=== PATIENT | female | born 1955 | race Caucasian/White ===

== ENCOUNTER 2020-07-14 12:04 | Emergency (ER) | payer MEDICARE, SELFPAY ==
--- NOTE | ~2020-07-14 | XR_ITS ---
EXAMINATION: XR RIBS, RIGHT CLINICAL INFORMATION: Fall right-sided rib pain COMPARISON: None TECHNIQUE: Frontal view chest and 3 views right ribs are obtained for a total of 4 views. FINDINGS: There is no pneumothorax, pleural reaction, infiltrate, or effusion. Calcified artery noted subpleural left lower zone measuring approximately 7 x 10 mm. The heart is normal in size. The vascularity is normal. The hilar and mediastinal contours are normal. One of the rib films shows subtle irregularity cortex distal sixth rib which may be related to fracture. Recommend correlation with patient's symptoms and clinical exam. The remainder of the ribs appear intact. There is no bony destructive process. There are multilevel degenerative changes thoracic spine and bilateral shoulders. There is calcific tendinosis left shoulder. XR/XR ribs RT min 3V w CXR1V IMPRESSION: 1. Question fracture distal right sixth rib. Recommend correlation with patient's symptoms and clinical exam. 2. No pneumothorax, airspace consolidation, or effusion. 3. Subpleural calcified granuloma periphery left lower zone 7 x 10 mm.
[2020-07-14 12:19] VITALS: BP 180/77; PULSE 100; RESP 20; TEMP 36.6; O2SAT 97; BMI 39.6
--- NOTE | 2020-07-14 13:23 | ED.FALL ---
HPI - Fall General Chief Complaint: Fall Stated Complaint: fall - diff breathing Time Seen by Provider: 07/14/20 13:22 Source: patient Mode of arrival: ambulatory Limitations: no limitations History of Present Illness HPI Narrative: 64-year-old female presented for evaluation of right chest wall pain after fell yesterday. 64-year-old female who sustained a mechanical fall yesterday patient fell after losing balance, patient fell landed on her right side mostly landed on a right chest wall, patient sustained and hematoma to the right chest wall, and the right arm. Patient initially had no pain but pain started to become gradually this morning patient had severe right-sided chest pain that is worsening with breathing or movement. Pain is constant, severe described as 10/10, has a hematoma on the right breast. No head injury, no LOC, no neck pain. Related Data Home Medications Medication Instructions Recorded Confirmed amoxicillin 875 mg tablet 875 mg PO BID 07/14/20 07/14/20 atorvastatin 40 mg tablet 40 mg PO DAILY 07/14/20 07/14/20 blood sugar diagnostic #10 ea 07/14/20 07/14/20 blood-glucose meter #1 ea 07/14/20 07/14/20 bupropion HCl 150 mg 24 hr tablet, 150 mg PO BID 07/14/20 07/14/20 extended release bupropion HCl 150 mg tablet,12 hr 150 mg PO BID 07/14/20 07/14/20 sustained-release bupropion HCl 300 mg 24 hr tablet, 300 mg PO DAILY 07/14/20 07/14/20 extended release duloxetine 60 mg capsule,delayed 120 mg PO DAILY 07/14/20 07/14/20 release furosemide 40 mg tablet 40 mg PO DAILY 07/14/20 07/14/20 glipizide 5 mg tablet, extended 5 mg PO DAILY 07/14/20 07/14/20 release 24 hr lamotrigine 100 mg tablet 100 mg PO BID 07/14/20 07/14/20 lancets #100 ea 07/14/20 07/14/20 liraglutide 0.6 mg/0.1 mL (18 mg/3 1.8 mg SUBCUT DAILY 07/14/20 07/14/20 mL) subcutaneous pen injector lisinopril 10 mg tablet 10 mg PO DAILY 07/14/20 07/14/20 metformin 1,000 mg tablet 1,000 mg PO BID 07/14/20 07/14/20 oxycodone 20 mg tablet,crush 20 mg PO BID 07/14/20 07/14/20 resistant,extended release 12 hr oxycodone 5 mg tablet 5 mg PO 07/14/20 07/14/20 oxycodone myristate 18 mg capsule 18 mg PO Q12H 07/14/20 07/14/20 sprinkle extended release 12hr(DON'T CRUSH) pen needle, diabetic 31 gauge x #1200 ea 07/14/20 07/14/20 5/16 potassium chloride 20 mEq 20 meq PO DAILY 07/14/20 07/14/20 tablet,extended release(part/cryst) Allergies Allergy/AdvReac Type Severity Reaction Status Date / Time heparin Allergy Unknown Verified 07/14/20 11:46 Opioids - Morphine Analogues Allergy Unknown Verified 07/14/20 11:46 Review of Systems Review of Systems: All other systems are reviewed and are negative Constitutional: Reports as per HPI and Reports no additional constitutional complaints Eyes: Reports as per HPI and Reports no additional eye complaints Reports system reviewed and no additional complaints, except as documented Cardiovascular: Reports as per HPI and Reports no additional cardiovascular complaints Respiratory: Reports as per HPI and Reports no additional respiratory complaints Gastrointestinal: Reports as per HPI and Reports no additional gastrointestinal complaints Genitourinary: Reports no additional female genitourinary complaints Musculoskeletal: Reports no additional musculoskeletal complaints Skin/Breast: Reports system reviewed and no additional complaints, except as docu Psychiatric: Reports no additional psychiatric complaints Endocrine: Reports no additional endocrine complaints Hematologic/Lymphatic: Reports no additional hematologic/lymphatic complaints Allergic/Immunologic: Reports no additional allergic/immunologic complaints Reports system reviewed and no additional complaints, except as documented and Reports Abnormal speech present FORMERLY [facility] Social History Social History Advance Directives: No Advance Directives Information Provided: Yes Physical Exam Vital Signs: Vital Signs: Last Vital Signs Temp 98 F 07/14/20 12:19 Pulse 100 07/14/20 12:19 Resp 20 07/14/20 12:19 BP 180/77 H 07/14/20 12:19 Pulse Ox 97 07/14/20 12:19 Body Mass Index 39.6 Vital signs have been reviewed as appeared to be correct. Blood pressure elevated likely due to pain. Heart rate normal. Respiration rate normal. Temperature normal. Oxygen saturation normal. Appearance: Alert. Oriented X3. No acute distress. Head: Normal external exam. Normocephalic. Atraumatic. No Rivera signs noted. No raccoon eyes noted Eyes: PERRLA. EOMI. Conjunctiva and sclera normal. Eyelids normal. ENT: TM's Normal. Pharynx normal. Uvula midline. Moist mucous membranes. No trismus noted. No drooling noted. No muffled voice noted. Neck: Normal inspection. Neck supple. FROM. No adenopathy. Thyroid Normal. No meningeal signs. No neck mass noted. CVS: Normal heart rate and rhythm. Heart sound normal. No murmurs noted. Pulses normal throughout. Respiratory: No respiratory distress. Painless inspiration. Breath sounds normal. No wheezes/rales/rhonchi noted. (+) ecchymosis 5 x 5 cm on the right breast, tenderness some palpation on wall mostly around 6/7 ribs on the right side no subcu emphysema, no crepitus, no deformity, no step-off.. No accessory muscle usage noted or decreased air movement noted. Abdomen: Soft and nontender. Bowel sounds normal in all 4 quadrants. No distention noted. No organomegaly noted. No visible injury noted. Back: No CVA tenderness. Full range of motion noted. Skin: Skin warm and dry. Normal skin color. Normal skin turgor. No rashes/lesions/lacerations noted. Extremities: No lower extremity edema. Extremities exhibit normal range of motion. Extremities nontender. Neuro: Oriented X 3. No motor deficit. No sensory deficit. Reflexes normal. GCS of 15. Course Course Course Narrative: Assessment and plan. 64-year-old female who sustained a mechanical fall yesterday complaining of right-sided chest wall with breathing and movement. Physical exam and x-ray are consistent with right 6 rib fracture nondisplaced, no no evidence suggesting a pneumothorax or other injuries. Patient was GCS of 15 no headache, no neck pain. Patient use oxycodone for chronic pain patient was instructed about the importance of taking a deep breath to keep the lung well inflated and prevent do complication of lung collapse or atelectasis. Because of the vague history of narcotic allergy patient was given Dilaudid (patient stated that she had it before) but patient was monitored in the ER for 15 minutes watching for reaction to Dilaudid. MDM - Fall Imaging Data X-ray ribs/chest x-ray: Radiologist's impression: There is no pneumothorax, pleural reaction, infiltrate, or effusion. Calcified artery noted subpleural left lower zone measuring approximately 7 x 10 mm. The heart is normal in size. The vascularity is normal. The hilar and mediastinal contours are normal. One of the rib films shows subtle irregularity cortex distal sixth rib which may be related to fracture. Recommend correlation with patient's symptoms and clinical exam. The remainder of the ribs appear intact. There is no bony destructive process. There are multilevel degenerative changes thoracic spine and bilateral shoulders. There is calcific tendinosis left shoulder. XR/XR ribs RT min 3V w CXR1V IMPRESSION: 1. Question fracture distal right sixth rib. Recommend correlation with patient's symptoms and clinical exam. 2. No pneumothorax, airspace consolidation, or effusion. 3. Subpleural calcified granuloma periphery left lower zone 7 x 10 mm. Discharge Plan Discharge Clinical Impression: Closed rib fracture Qualifiers: Encounter type: initial encounter Rib fracture type: single rib Laterality: right Qualified Code(s): S22.31XA - Fracture of one rib, right side, initial encounter for closed fracture Patient Disposition: Home, Self-Care Instructions: Rib Fracture (ED) Prescriptions: No Action bupropion HCl 300 mg tablet extended release 24 hr 300 mg PO DAILY RF: 0 Victoza 3-Mauro 0.6 mg/0.1 mL (18 mg/3 mL) pen injector 1.8 mg subcut DAILY RF: 0 duloxetine 60 mg capsule,delayed release(DR/EC) 120 mg PO DAILY RF: 0 lamotrigine 100 mg tablet 100 mg PO BID RF: 0 lisinopril 10 mg tablet 10 mg PO DAILY RF: 0 oxycodone 5 mg tablet 5 mg PO RF: 0 Xtampza ER 18 mg cap,sprinkl,ER12hr(DONT CRUSH) 18 mg PO Q12H RF: 0 (DME) pen needle, diabetic 31 gauge x 5/16 needle See Rx Instructions ea subcut DAILY Qty: 1200 RF: 0 (DME) lancets Misc See Rx Instructions ea topical .MEDSUPPLY Qty: 100 RF: 0 (DME) Accu-Chek Guide test strips Strip See Rx Instructions ea .ROUTE TID Qty: 10 RF: 0 glipizide 5 mg tablet extended release 24hr 5 mg PO DAILY RF: 0 (DME) blood-glucose meter Misc See Rx Instructions kit .ROUTE .MEDSUPPLY Qty: 1 RF: 0 metformin 1,000 mg tablet 1,000 mg PO BID RF: 0 potassium chloride 20 mEq tablet,ER particles/crystals 20 meq PO DAILY RF: 0 furosemide 40 mg tablet 40 mg PO DAILY RF: 0 amoxicillin 875 mg tablet 875 mg PO BID RF: 0 atorvastatin 40 mg tablet 40 mg PO DAILY RF: 0 bupropion HCl 150 mg tablet sustained-release 12 hr 150 mg PO BID RF: 0 bupropion HCl 150 mg tablet extended release 24 hr 150 mg PO BID RF: 0 oxycodone 20 mg tablet,oral only,ext.rel.12 hr 20 mg PO BID RF: 0 Referrals: Physician,Nonstaff [Primary Care Provider] - 2 days
[2020-07-14] MEDS: HYDROmorphone HCl 1 MG/ML SYRINGE IM (13:28)
[2020-07-14] MEDS: Ketorolac Tromethamine 60 MG/2 ML VIAL IM (13:28)
== END 2020-07-14 14:04 | disposition home or self-care (01) ==
PROVIDERS: Emergency Provider Emergency Medicine
DX: S22.31XA Fracture of one rib, right side, initial encounter for closed fracture (principal); W01.0XXA Fall on same level from slipping, tripping and stumbling without subsequent striking against object, initial encounter; Y93.9 Activity, unspecified; Y92.019 Unspecified place in single-family (private) house as the place of occurrence of the external cause; Y99.9 Unspecified external cause status; G89.29 Other chronic pain; Z79.891 Long term (current) use of opiate analgesic
CPT/HCPCS: 71101; 96372; 99284; J1170; J1885

== ENCOUNTER 2022-09-27 16:10 | Emergency (ER) | payer MEDICARE, SELFPAY ==
[2022-09-27 16:29] VITALS: BP 135/56; PULSE 92; RESP 18; TEMP 36; O2SAT 97; BMI 44.0
--- NOTE | 2022-09-27 16:30 | ED.GENADULT ---
HPI - General Adult General Chief complaint: Extremity Injury, Lower Stated complaint: Fall/right leg pain Time Seen by Provider: 09/27/22 19:37 Source: patient Mode of arrival: ambulatory Limitations: no limitations History of Present Illness HPI narrative: Patient is a 66-year-old female who presents emergency department for evaluation of right lower leg pain swelling and redness. She reports a mechanical trip and fall 1 week ago landing on the cement were she sustained bruising diffusely from below the knee down to the foot. She has been ambulatory with a steady gait since then. She denied any head strike or loss of consciousness with this initial fall. Denies any use of anticoagulants, although she does report a remote history of DVT during . She states that today she noticed she developed redness, warmth, increased swelling to the right lower extremity. She denies fevers, chills, chest pain, shortness of breath, difficulty breathing, numbness or tingling to the leg, cold sensation to the foot. Related Data Home Medications Medication Instructions Recorded Confirmed amoxicillin 875 mg tablet 875 mg PO BID 07/14/20 07/14/20 atorvastatin 40 mg tablet 40 mg PO DAILY 07/14/20 07/14/20 blood sugar diagnostic #10 ea 07/14/20 07/14/20 blood-glucose meter #1 ea 07/14/20 07/14/20 bupropion HCl 150 mg 24 hr tablet, 150 mg PO BID 07/14/20 07/14/20 extended release bupropion HCl 150 mg tablet,12 hr 150 mg PO BID 07/14/20 07/14/20 sustained-release bupropion HCl 300 mg 24 hr tablet, 300 mg PO DAILY 07/14/20 07/14/20 extended release duloxetine 60 mg capsule,delayed 120 mg PO DAILY 07/14/20 07/14/20 release furosemide 40 mg tablet 40 mg PO DAILY 07/14/20 07/14/20 glipizide 5 mg tablet, extended 5 mg PO DAILY 07/14/20 07/14/20 release 24 hr lamotrigine 100 mg tablet 100 mg PO BID 07/14/20 07/14/20 lancets #100 ea 07/14/20 07/14/20 liraglutide 0.6 mg/0.1 mL (18 mg/3 1.8 mg subcut DAILY 07/14/20 07/14/20 mL) subcutaneous pen injector lisinopril 10 mg tablet 10 mg PO DAILY 07/14/20 07/14/20 metformin 1,000 mg tablet 1,000 mg PO BID 07/14/20 07/14/20 oxycodone 20 mg tablet,crush 20 mg PO BID 07/14/20 07/14/20 resistant,extended release 12 hr oxycodone 5 mg tablet 5 mg PO 07/14/20 07/14/20 oxycodone myristate 18 mg capsule 18 mg PO Q12H 07/14/20 07/14/20 sprinkle extended release 12hr(DON'T CRUSH) pen needle, diabetic 31 gauge x #1,200 ea 07/14/20 07/14/2008/07 potassium chloride 20 mEq 20 meq PO DAILY 07/14/20 07/14/20 tablet,extended release(part/cryst) Previous Rx's Medication Instructions Recorded cephalexin 500 mg capsule 500 mg PO QID 7 days #28 caps 09/27/22 doxycycline hyclate 100 mg capsule 100 mg PO BID #14 caps 09/27/22 Allergies Allergy/AdvReac Type Severity Reaction Status Date / Time heparin Allergy Unknown Verified 09/27/22 16:28 Opioids - Morphine Analogues Allergy Unknown Verified 09/27/22 16:28 Review of Systems Review of Systems: Constitutional: No weight loss, fever, chills, weakness or fatigue. Skin: As per HPI Cardiovascular: No chest pain, chest pressure or chest discomfort. No palpitations or pedal edema. Respiratory: No shortness of breath, cough or sputum production. Gastrointestinal: No anorexia, nausea, vomiting or diarrhea. No abdominal pain or blood in stool. Genitourinary: No burning micturition. No urinary frequency or incontinence. Musculoskeletal: As per HPI Psychiatric: No depression or anxiety. Yes all other systems are reviewed and are negative PMFSH Past Medical History Attestation statement: The following information was validated with the patient. Source: old records reviewed Social History Social History Smoked in Last 30 Days: Yes Use of substances other than those prescribed or required for medical reasons: No Advance Directives: No Advance Directives Information Provided: No Physical Exam ED Vital Signs: Vital Signs - 24 hr 09/27/22 16:29 09/27/22 19:52 Temperature 96.8 F Pulse Rate 92 77 Respiratory Rate 18 20 Blood Pressure 135/56 L 124/64 Pulse Oximetry 97 99 Oxygen Delivery Method Room Air Room Air BMI result Body Mass Index 44.0 Appearance: Alert.?Oriented to person, place and time. No acute distress.?Normal affect. Eyes: Pupils equal, round and reactive to light.? ENT: Pharynx normal.?? Neck: Normal inspection.? Neck supple.?? CVS: Heart sounds normal. Normal heart rate and rhythm.? Pulses normal.?? Respiratory: No respiratory distress.? Lung sounds clear to auscultation bilaterally?? Abdomen: Soft and non-tender. Normoactive bowel sounds. Skin: Skin warm and dry.? Normal skin color.? Extremities: Localized swelling erythema and warmth to the right lower extremity with extensive bruising. Neurovascularly intact distally. 2+ DP/PT pulse bilaterally. Full AROM to right knee ankle and foot. Neuro: Moves all extremities spontaneously. Sensation intact bilaterally. No focal neuro deficits. Ambulates with normal steady gait. Course Course Course Narrative: This is an RME: Additional HPI, ROS, PE not included below will be deferred to primary provider. This is a [id number], with a past medical history of diabetes, CHF, chronic back pain, arthritis, presenting to the emergency department with a complaint of right leg pain x 1 week. Patient tripped and fell onto her right leg. Reports that she noticed redness, warmth and increased swelling since today. No fevers or chills. History of DVT when she was many years ago and states that her presentation is very similar to DVT she had in the past. Plan: Labs, x-ray, US RLE Medical Decision Making Medical Decision Making MDM Narrative: Patient is a 66-year-old female past medical history of hyperlipidemia, depression, CAD, diabetes, hypertension, radiculopathy presenting to emergency department for evaluation of right lower extremity pain as per HPI. She has extensive bruising to the right lower extremity from the knee down to the foot. However she has full range of motion to the knee ankle and foot. She is able to fully weightbear without complication. She does have tenderness upon palpation diffusely throughout the calf and it is warm to the touch with erythema and localized swelling. This presentation at this time is most concerning for cellulitis without any evidence of abscess. XR imaging obtained reveals no acute fracture dislocation, there is soft tissue swelling consistent with physical examination. Venous duplex ultrasound does not reveal any evidence of DVT. CBC reveals no leukocytosis she has a mild normocytic anemia but does not meet transfusion criteria. CMP is overall unremarkable. Discussed plan of care for discharge home, will treat cellulitis with cephalexin and doxycycline. Reviewed worrisome signs and symptoms that would warrant re-evaluation. Patient verbalizes understanding, she is visiting from [place], and states that she will follow-up with her primary care doctor. Differential Diagnosis Differential Diagnoses: The differential diagnosis associated with the presentation includes (As noted above) Admission/Observation Consideration of admission/observation: Escalation of care including admission/observation considered (I considered admission for right lower extremity swelling and pain, however as per narrative above, did not feel that admission was required after workup completed) Lab Data MDM Lab Attestation statement: I reviewed the patient's lab results. (Seen Elda of above) 09/27/22 16:49 09/27/22 16:49 Labs: Lab Results 09/27/22 09/27/22 Range/Units 16:49 16:49 WBC 10.2 (4.8-10.8) X10*3/uL RBC 3.79 L (4.20-5.50) X10*6/uL Hgb 11.3 L (12.0-16.0) g/dl Hct 34.4 L (37.0-47.0) % MCV 90.8 (80.0-98.0) fL MCH 29.8 (27.0-33.0) pg MCHC 32.8 (31.0-35.0) g/dl RDW 13.4 (11.0-16.0) % Plt Count 215 (160-400) X10*3/uL MPV 9.1 L (9.4-12.3) fL Immature Gran % (Auto) 0.3 (0.0-0.4) % Neut % (Auto) 65.9 (45-73) % Lymph % (Auto) 21.7 (20-40) % Weakley % (Auto) 8.3 (2-11) % Eos % (Auto) 3.4 (0-4) % Baso % (Auto) 0.4 (0-2) % Lymph # (Auto) 2.2 (1.2-4.9) X10*3/uL Weakley # (Auto) 0.9 (0.1-1.2) X10*3/uL Eos # (Auto) 0.4 (0.0-0.4) X10*3/uL Baso # (Auto) 0.0 (0.0-0.2) X10*3/uL Abs Immat Gran (auto) 0.03 (0.00-0.03) X10*3/uL Absolute Neuts (auto) 6.7 (2.0-8.3) x10*3/uL Absolute Nucleated RBC 0.000 (0.0-0.012) X10*3/uL Nucleated RBC % (auto) 0.0 (0.0-0.2) /100WBC Sodium 138 (135-145) mmol/L Potassium 5.0 (3.3-5.1) mmol/L Chloride 102 (96-108) mmol/L Carbon Dioxide 26 (22-29) mmol/L Anion Gap 15 (12-20) BUN 32 H (9-16) mg/dL Creatinine 1.16 (0.5-1.4) mg/dL Estim Creat Clear Calc 53.0 Estimated GFR 47 Random Glucose 149 H (60-115) mg/dL Calcium 9.5 (8.4-10.2) mg/dL Total Bilirubin 0.4 (0.0-1.0) mg/dL Direct Bilirubin 0.2 (0.0-0.5) mg/dL AST 21 (5-31) U/L ALT 31 (0-31) U/L Alkaline Phosphatase 124 H (39-117) U/L Total Protein 6.8 (6.5-8.0) g/dL Albumin 4.0 (3.5-5.0) g/dL Independent Interpretation I performed an independent interpretation of an: Plain X-Ray (I have personally interpreted XR imaging of the tibia fibula and agree with radiologist impression no acute fracture or dislocation) Radiology Impression Discussion of test interpretation with radiology: I have reviewed the radiologist's reading. Radiologist Impression: XR/XR tibia fibula RT 2V IMPRESSION: No acute fracture or dislocation. Calcaneal spurs. Mild degenerative changes at the knee joint. Diffuse soft tissue swelling. US/US venous duplex LE RT IMPRESSION: No DVT demonstrated in the right lower extremity. Calf veins not well visualized. External Record Review External record reviewed: Outpatient record and Prior outpatient labs Prescription Management I considered prescription management with: Antibiotic Chronic Conditions Patient?s care impacted by: Diabetes and Hypertension Discharge Plan Discharge Clinical Impression: Cellulitis, Contusion of right lower extremity Patient Disposition: Home, Self-Care Instructions: Cellulitis (ED), Contusion in Adults (ED) Additional Instructions: As discussed, your x-ray today did not reveal any fracture or dislocation. The ultrasound does not show any evidence of a blood clot, DVT. This is very reassuring. It appears at this time that you have cellulitis to your leg. For this you have been given a prescription for antibiotics; Keflex and doxycycline. Please complete the entire course of both. Contact your primary care provider to arrange for follow-up within 1-3 days. You should have it re-evaluated if you develop fevers, chills, severe worsening pain/swelling, or redness that is worsening despite being on antibiotics. He developed numbness or tingling to the lower extremity or cold sensation to the foot the should also be re-evaluated. Prescriptions: New cephalexin 500 mg capsule 500 mg PO QID 7 Days Qty: 28 0RF doxycycline hyclate 100 mg capsule 100 mg PO BID Qty: 14 0RF No Action bupropion HCl 300 mg tablet extended release 24 hr 300 mg PO DAILY Victoza 3-Mauro 0.6 mg/0.1 mL (18 mg/3 mL) pen injector 1.8 mg subcut DAILY duloxetine 60 mg capsule,delayed release(DR/EC) 120 mg PO DAILY lamotrigine 100 mg tablet 100 mg PO BID lisinopril 10 mg tablet 10 mg PO DAILY oxycodone 5 mg tablet 5 mg PO Xtampza ER 18 mg cap,sprinkl,ER12hr(DONT CRUSH) 18 mg PO Q12H (DME) pen needle, diabetic 31 gauge x 5/16 needle See Rx Instructions subcut DAILY Qty: 1200 Rx Instructions: As directed (DME) lancets Misc See Rx Instructions topical .MEDSUPPLY Qty: 100 Rx Instructions: As directed (DME) Accu-Chek Guide test strips Strip See Rx Instructions .ROUTE TID Qty: 10 Rx Instructions: As directed glipizide 5 mg tablet extended release 24hr 5 mg PO DAILY (DME) blood-glucose meter Misc See Rx Instructions .ROUTE .MEDSUPPLY Qty: 1 Rx Instructions: As directed metformin 1,000 mg tablet 1,000 mg PO BID potassium chloride 20 mEq tablet,ER particles/crystals 20 meq PO DAILY furosemide 40 mg tablet 40 mg PO DAILY amoxicillin 875 mg tablet 875 mg PO BID atorvastatin 40 mg tablet 40 mg PO DAILY bupropion HCl 150 mg tablet sustained-release 12 hr 150 mg PO BID bupropion HCl 150 mg tablet extended release 24 hr 150 mg PO BID oxycodone 20 mg tablet,oral only,ext.rel.12 hr 20 mg PO BID Referrals: Physician,Unknown J [Primary Care Provider] -
[2022-09-27 19:52] VITALS: BP 124/64; PULSE 77; RESP 20; O2SAT 99
--- NOTE | 2022-09-27 20:04 | PC.NURSE ---
Pt ca&ox4, no signs of distress. Pt reports 7/10 right lower leg pain that started a wk ago after tripping while walking and falling onto a cement floor. wctm.
== END 2022-09-27 21:22 | disposition home or self-care (01) ==
PROVIDERS: Emergency Provider Student in an Organized Health Care Education/Training Program
DX: L03.115 Cellulitis of right lower limb (principal); S80.11XA Contusion of right lower leg, initial encounter; W01.0XXA Fall on same level from slipping, tripping and stumbling without subsequent striking against object, initial encounter; M79.661 Pain in right lower leg; E11.9 Type 2 diabetes mellitus without complications; E78.5 Hyperlipidemia, unspecified; I10 Essential (primary) hypertension; Y93.9 Activity, unspecified; Y92.480 Sidewalk as the place of occurrence of the external cause; Y99.9 Unspecified external cause status; Z79.899 Other long term (current) drug therapy; Z79.84 Long term (current) use of oral hypoglycemic drugs
CPT/HCPCS: 36415; 73590; 80048; 80076; 85025; 87040; 93971; 99284

== ENCOUNTER 2022-12-25 14:25 | Emergency (ER) | payer MEDICARE, SELFPAY ==
[2022-12-25 14:28] VITALS: BP 143/46; PULSE 86; RESP 20; TEMP 36.7; O2SAT 97; BMI 47.6
--- NOTE | 2022-12-25 14:28 | ED.GENADULT ---
HPI - General Adult General Chief complaint: Skin/Abscess/Foreign Body Stated complaint: R leg inj Related Data Home Medications ?Medication ?Instructions ?Recorded ?Confirmed amoxicillin 875 mg tablet 875 mg PO BID 07/14/20 07/14/20 atorvastatin 40 mg tablet 40 mg PO DAILY 07/14/20 07/14/20 blood sugar diagnostic #10 ea 07/14/20 07/14/20 blood-glucose meter #1 ea 07/14/20 07/14/20 bupropion HCl 150 mg 24 hr tablet, 150 mg PO BID 07/14/20 07/14/20 extended release bupropion HCl 150 mg tablet,12 hr 150 mg PO BID 07/14/20 07/14/20 sustained-release bupropion HCl 300 mg 24 hr tablet, 300 mg PO DAILY 07/14/20 07/14/20 extended release duloxetine 60 mg capsule,delayed 120 mg PO DAILY 07/14/20 07/14/20 release furosemide 40 mg tablet 40 mg PO DAILY 07/14/20 07/14/20 glipizide 5 mg tablet, extended 5 mg PO DAILY 07/14/20 07/14/20 release 24 hr lamotrigine 100 mg tablet 100 mg PO BID 07/14/20 07/14/20 lancets #100 07/14/20 07/14/20 liraglutide 0.6 mg/0.1 mL (18 mg/3 1.8 mg subcut DAILY 07/14/20 07/14/20 mL) subcutaneous pen injector lisinopril 10 mg tablet 10 mg PO DAILY 07/14/20 07/14/20 metformin 1,000 mg tablet 1,000 mg PO BID 07/14/20 07/14/20 oxycodone 20 mg tablet,crush 20 mg PO BID 07/14/20 07/14/20 resistant,extended release 12 hr oxycodone 5 mg tablet 5 mg PO 07/14/20 07/14/20 oxycodone myristate 18 mg capsule 18 mg PO Q12H 07/14/20 07/14/20 sprinkle extended release 12hr(DON'T CRUSH) pen needle, diabetic 31 gauge x #1,200 07/14/20 07/14/20 5/16 potassium chloride 20 mEq 20 meq PO DAILY 07/14/20 07/14/20 tablet,extended release(part/cryst) Previous Rx's ?Medication ?Instructions ?Recorded cephalexin 500 mg capsule 500 mg PO QID 7 days #28 caps 09/27/22 doxycycline hyclate 100 mg capsule 100 mg PO BID #14 caps 09/27/22 cephalexin 500 mg capsule 500 mg PO QID 7 days #28 caps 12/30/22 doxycycline hyclate 100 mg capsule 100 mg PO BID 7 days #14 caps 12/30/22 Allergies Allergy/AdvReac Type Severity Reaction Status Date / Time heparin Allergy Hives Verified 12/30/22 06:28 Opioids - Morphine Analogues Allergy Migraine Verified 12/30/22 06:28 [facility] Past Medical History Medical History Diabetes Social History Social History (Updated 12/30/22 @ 07:15 by Kesha Jalloh DO) Alcohol intake: never Patient Tobacco Use Status: Tobacco use Unknown Smoked in Last 30 Days: Yes Use of substances other than those prescribed or required for medical reasons: No Advance Directives: No Advance Directives Information Provided: No Physical Exam ED Vital Signs: BMI result Body Mass Index 47.6 Course Course Course Narrative: This is an RME: Additional HPI, ROS, PE not included below will be deferred to primary provider. 67 y o female presenting for evaluation of R lower leg swelling and erythema, pt is concerned for cellulitis. States she was put on Abx (likely Keflex although pt is unsure, states started with a C and was QID) in [place] about a week ago, but states its getting worse. Plan -- labs Discharge Plan Discharge Clinical Impression: Eloped from emergency department Patient Disposition: Left W/O Completing Treatment Prescriptions: No Action cephalexin 500 mg capsule 500 mg PO QID 7 Days Qty: 28 0RF doxycycline hyclate 100 mg capsule 100 mg PO BID Qty: 14 0RF doxycycline hyclate 100 mg capsule 100 mg PO BID 7 Days Qty: 14 0RF cephalexin 500 mg capsule 500 mg PO QID 7 Days Qty: 28 0RF bupropion HCl 300 mg tablet extended release 24 hr 300 mg PO DAILY Victoza 3-Mauro 0.6 mg/0.1 mL (18 mg/3 mL) pen injector 1.8 mg subcut DAILY duloxetine 60 mg capsule,delayed release(DR/EC) 120 mg PO DAILY lamotrigine 100 mg tablet 100 mg PO BID lisinopril 10 mg tablet 10 mg PO DAILY oxycodone 5 mg tablet 5 mg PO Xtampza ER 18 mg cap,sprinkl,ER12hr(DONT CRUSH) 18 mg PO Q12H (DME) pen needle, diabetic 31 gauge x 5/16 needle See Rx Instructions subcut DAILY Qty: 1200 Rx Instructions: As directed (DME) lancets Misc See Rx Instructions topical .MEDSUPPLY Qty: 100 Rx Instructions: As directed (DME) Accu-Chek Guide test strips Strip See Rx Instructions .ROUTE TID Qty: 10 Rx Instructions: As directed glipizide 5 mg tablet extended release 24hr 5 mg PO DAILY (DME) blood-glucose meter Misc See Rx Instructions .ROUTE .MEDSUPPLY Qty: 1 Rx Instructions: As directed metformin 1,000 mg tablet 1,000 mg PO BID potassium chloride 20 mEq tablet,ER particles/crystals 20 meq PO DAILY furosemide 40 mg tablet 40 mg PO DAILY amoxicillin 875 mg tablet 875 mg PO BID atorvastatin 40 mg tablet 40 mg PO DAILY bupropion HCl 150 mg tablet sustained-release 12 hr 150 mg PO BID bupropion HCl 150 mg tablet extended release 24 hr 150 mg PO BID oxycodone 20 mg tablet,oral only,ext.rel.12 hr 20 mg PO BID Discharge Date/Time: 12/25/22 20:36
== END 2022-12-25 20:36 | disposition left against medical advice (07) ==
PROVIDERS: Emergency Provider Emergency Medicine
DX: M79.89 Other specified soft tissue disorders (principal)
CPT/HCPCS: 99281

== ENCOUNTER 2022-12-30 06:24 | Emergency (ER) | payer MEDICARE, SELFPAY ==
[2022-12-30 06:29] VITALS: BP 156/73; PULSE 83; RESP 20; TEMP 36.7; O2SAT 98; BMI 47.1
[2022-12-30 06:46] VITALS: BP 138/47; PULSE 82; RESP 18; TEMP 36.8; O2SAT 99
--- NOTE | 2022-12-30 06:54 | PC.NURSE ---
pt a&ox3. respirations even and unlabored. pt reports having a fall on December 10 [address] seen in a [facility]. pt reports completing a full course of antibiotics. pt now reports right calf pain and redness, pt reports the redness spread up her calf since antibiotic completion. pt right calf red and warm to touch. no drainage noted. positive bilateral pedal pulses.
--- NOTE | 2022-12-30 07:13 | ED.EXTPRO ---
HPI - Extremity Problem General Chief complaint: Extremity Problem Stated complaint: R leg pain/back pain Time Seen by Provider: 12/30/22 07:03 Source: patient Mode of arrival: ambulatory Limitations: no limitations History of Present Illness HPI Narrative: 67 yo female with PMH of CHF, diabetes, back pain fell in [place] on concrete [place] on 12/14 hit R leg and developed redness was started on cephalexin on 12/15 she completed the course but the right leg has worsened with more redness and swelling. She notes the redness is increasing and going up the leg and the leg is still very swollen. She also notes she hurt her hip during the fall. She denies fevers, n/v/d. The redness worsened again after she finished the oral cephalexin about 1 week ago. MD Complaint: extremity pain and extremity swelling Onset (ago): week(s) (12/14) Pain Consistency: constant Location: right and lower extremity Quality: aching, dull and constant Radiation: none Relieving factors: immobilization Exacerbating factors: palpation Associated symptoms: rash Context: other (all started after a fall) Related Data Home Medications Medication Instructions Recorded Confirmed amoxicillin 875 mg tablet 875 mg PO BID 07/14/20 07/14/20 atorvastatin 40 mg tablet 40 mg PO DAILY 07/14/20 07/14/20 blood sugar diagnostic #10 ea 07/14/20 07/14/20 blood-glucose meter #1 ea 07/14/20 07/14/20 bupropion HCl 150 mg 24 hr tablet, 150 mg PO BID 07/14/20 07/14/20 extended release bupropion HCl 150 mg tablet,12 hr 150 mg PO BID 07/14/20 07/14/20 sustained-release bupropion HCl 300 mg 24 hr tablet, 300 mg PO DAILY 07/14/20 07/14/20 extended release duloxetine 60 mg capsule,delayed 120 mg PO DAILY 07/14/20 07/14/20 release furosemide 40 mg tablet 40 mg PO DAILY 07/14/20 07/14/20 glipizide 5 mg tablet, extended 5 mg PO DAILY 07/14/20 07/14/20 release 24 hr lamotrigine 100 mg tablet 100 mg PO BID 07/14/20 07/14/20 lancets #100 ea 07/14/20 07/14/20 liraglutide 0.6 mg/0.1 mL (18 mg/3 1.8 mg subcut DAILY 07/14/20 07/14/20 mL) subcutaneous pen injector lisinopril 10 mg tablet 10 mg PO DAILY 07/14/20 07/14/20 metformin 1,000 mg tablet 1,000 mg PO BID 07/14/20 07/14/20 oxycodone 20 mg tablet,crush 20 mg PO BID 07/14/20 07/14/20 resistant,extended release 12 hr oxycodone 5 mg tablet 5 mg PO 07/14/20 07/14/20 oxycodone myristate 18 mg capsule 18 mg PO Q12H 07/14/20 07/14/20 sprinkle extended release 12hr(DON'T CRUSH) pen needle, diabetic 31 gauge x #1,200 ea 07/14/20 07/14/20 5/16 potassium chloride 20 mEq 20 meq PO DAILY 07/14/20 07/14/20 tablet,extended release(part/cryst) Previous Rx's Medication Instructions Recorded cephalexin 500 mg capsule 500 mg PO QID 7 days #28 caps 09/27/22 doxycycline hyclate 100 mg capsule 100 mg PO BID #14 caps 09/27/22 cephalexin 500 mg capsule 500 mg PO QID 7 days #28 caps 12/30/22 doxycycline hyclate 100 mg capsule 100 mg PO BID 7 days #14 caps 12/30/22 Allergies Allergy/AdvReac Type Severity Reaction Status Date / Time heparin Allergy Hives Verified 12/30/22 06:28 Opioids - Morphine Analogues Allergy Migraine Verified 12/30/22 06:28 Review of Systems Review of Systems: Constitutional : No Fever, No Chills ENT/Mouth : No sore throat, No Rhinorrhea Eyes: No Eye Pain, No Swelling, No Redness Cardiovascular : No Chest Pain, No SOB, pos edema Respiratory : No Cough, No Sputum Gastrointestinal : No Nausea, No Vomiting, No Diarrhea, No abdominal Pain Genitourinary : No Dysuria, No Hematuria Musculoskeletal : pos joint pain, No Myalgias, No Joint Swelling Skin : No Skin Lesions, positive skin rash Neuro : No Weakness, No Numbness, No Headache Psych : No Anxiety, No Depression Heme/Lymph: No Bruising, No Bleeding,No Lymphadenopathy Endocrine : No Polyuria, No Polydipsia All other systems reviewed and are negative [facility] Past Medical History Attestation statement: The following information was validated with the patient. Source: old records reviewed Medical History Diabetes Social History Social History (Updated 12/30/22 @ 07:15 by Kesha Jalloh DO) Alcohol intake: never Patient Tobacco Use Status: Tobacco use Unknown Smoked in Last 30 Days: Yes Use of substances other than those prescribed or required for medical reasons: No Advance Directives: No Advance Directives Information Provided: No Physical Exam Vital Signs: Vital Signs: Last Vital Signs Temp 97.4 F 12/30/22 09:29 Pulse 77 12/30/22 09:29 Resp 18 12/30/22 09:29 BP 151/42 H 12/30/22 09:29 Pulse Ox 98 12/30/22 09:29 O2 Del Method Room Air 12/30/22 09:29 BMI result Body Mass Index 47.1 Appearance: Alert. Oriented X3. No acute distress. Eyes: Pupils equal, round and reactive to light. ENT: Pharynx normal. Neck: Normal inspection. Neck supple. CVS: Normal heart rate and rhythm. Pulses normal. Respiratory: No respiratory distress. Breath sounds normal. Abdomen: Soft and nontender. Skin: Skin warm and dry. Normal skin color. Extremities: R leg moderate edema of R calf anterior - hot to touch with erythema that streaks up to the knee and circumferential there is no fluctuance or drainage, no crepitus, distal NV intact compartments are soft. L leg there is trace to 1+ edema with no warmth but a shiny flat pink area like venous stasis dermatitis anteriorly Neuro: Oriented X 3. No motor deficit. No sensory deficit. Course Course Course Narrative: vomited after zosyn - given zofran improved no rash or resp issues Medications Administered Discontinued Medications Generic Name Dose Route Start Last Admin Trade Name Freq PRN Reason Stop Dose Admin Piperacillin Sod/Tazobactam 50 mls @ 100 mls/hr 12/30/22 07:10 12/30/22 08:40 Sod 3.375 gm/ Sodium Chloride IV 12/30/22 07:39 Infused ONCE ONE Infusion Vancomycin HCl 2,000 mg in 500 mls @ 250 mls/hr 12/30/22 07:11 12/30/22 09:26 Vancomycin/Ns IV 12/30/22 09:10 250 mls/hr ONCE ONE Administration Ondansetron HCl 4 mg 12/30/22 09:19 12/30/22 09:24 Ondansetron Hcl 4 Mg/2 Ml Vial IVPUSH 12/30/22 09:20 4 mg ONCE ONE Administration Medical Decision Making Medical Decision Making [facility] Narrative: 67 yo female with PMH of CHF, diabetes, back pain here s/p oral antibiotics completed a week ago after soft tissue injury now with signs of skin infection and moderate edema of the right calf but she is distal NV intact and no signs of abscess or compartment syndrome. At this time I am going to obtain labs, cultures, xray of r hip (post fall), DVT study and start on zosyn and vancomycin. She failed oral outpatient antibiotics suspect she will need inpatient care. Differential Diagnosis Differential Diagnoses: The differential diagnosis associated with the presentation includes edema, hematoma, cellulitis Admission/Observation Consideration of admission/observation: Escalation of care including admission/observation considered admit for IV antibiotics but patient refused she is here from [place] taking care of her mom aware I want to admit given she failed antibiotics Lab Data [facility] Lab Attestation statement: I reviewed the patient's lab results. 12/30/22 07:45 12/30/22 07:44 Labs: Lab Results 12/30/22 12/30/22 12/30/22 Range/Units 07:44 07:45 07:50 WBC 11.5 H (4.8-10.8) X10*3/uL RBC 4.11 L (4.20-5.50) X10*6/uL Hgb 12.1 (12.0-16.0) g/dl Hct 37.2 (37.0-47.0) % MCV 90.5 (80.0-98.0) fL MCH 29.4 (27.0-33.0) pg MCHC 32.5 (31.0-35.0) g/dl RDW 12.9 (11.0-16.0) % Plt Count 206 (160-400) X10*3/uL MPV 9.0 L (9.4-12.3) fL Immature Gran % (Auto) 0.5 H (0.0-0.4) % Neut % (Auto) 69.2 (45-73) % Lymph % (Auto) 20.2 (20-40) % [place] % (Auto) 7.1 (2-11) % Eos % (Auto) 2.7 (0-4) % Baso % (Auto) 0.3 (0-2) % Lymph # (Auto) 2.3 (1.2-4.9) X10*3/uL [place] # (Auto) 0.8 (0.1-1.2) X10*3/uL Eos # (Auto) 0.3 (0.0-0.4) X10*3/uL Baso # (Auto) 0.0 (0.0-0.2) X10*3/uL Abs Immat Gran (auto) 0.06 H (0.00-0.03) X10*3/uL Absolute Neuts (auto) 8.0 (2.0-8.3) x10*3/uL Absolute Nucleated RBC 0.000 (0.0-0.012) X10*3/uL Nucleated RBC % (auto) 0.0 (0.0-0.2) /100WBC PT 10.0 L (11.1-13.3) SEC INR 0.8 L (0.9-1.1) Sodium 140 (135-145) mmol/L Potassium 4.6 (3.3-5.1) mmol/L Chloride 104 (96-108) mmol/L Carbon Dioxide 25 (22-29) mmol/L Anion Gap 16 (12-20) BUN 28 H (9-16) mg/dL Creatinine 1.11 (0.5-1.4) mg/dL Estim Creat Clear Calc 57.1 Estimated GFR 49 Random Glucose 157 H (60-115) mg/dL Lactic Acid 1.7 (0.5-2.0) mmol/L Calcium 9.7 (8.4-10.2) mg/dL Total Bilirubin 0.4 (0.0-1.0) mg/dL AST 20 (5-31) U/L ALT 26 (0-31) U/L Alkaline Phosphatase 115 (39-117) U/L Total Creatine Kinase 82 (26-140) U/L Total Protein 6.9 (6.5-8.0) g/dL Albumin 4.1 (3.5-5.0) g/dL Nasal Screen MRSA (PCR) NEGATIVE (Negative) Nasal S. aureus Screen NEGATIVE (Negative) Nasal MRSA/S.aureus Interp SEE NOTE Independent Interpretation I performed an independent interpretation of an: Plain X-Ray (no fracture) and Ultrasound (no DVT) Radiology Impression Discussion of test interpretation with radiology: I have reviewed the radiologist's reading. External Record Review External record reviewed: Inpatient record Prescription Management I considered prescription management with: Antibiotic Chronic Conditions Patient?s care impacted by: Diabetes Discharge Plan Discharge Clinical Impression: Cellulitis Qualifiers: Site of cellulitis: extremity Site of cellulitis of extremity: lower extremity Laterality: right Qualified Code(s): L03.115 - Cellulitis of right lower limb Patient Disposition: Home, Self-Care Instructions: Cellulitis (ED) Additional Instructions: you were offered admission but declined - you can come back at any time especially for fevers, worsening symptoms, swelling, redness or any other concerns. you had a normal hip xray and no blood clot Take a probiotic while you are on antibiotics and for at least one week after the antibiotics are finished - this can help protect your GI system from diarrhea and other issues. You can get probiotics by drinking kefir, eating yogurt or culturelle or another pill form of probiotic. Do not take it at the same time as you take the antibiotic.?More than 6 to 8 loose stools a day is not normal seek care if this happens On doxycycline, do not take pills immediately before going to bed and swallow pills with plenty of water. Avoid direct sunlight, iron, antacids, and Pepto Bismol. Call your provider if you develop new ringing in your ears, new problems hearing, dizziness, difficulty swallowing, rash, abdominal discomfort, nausea, or diarrhea.? On a cephalosporin?antibiotic, softer bowel movements are to be expected. Call your provider if you move your bowels more than 4 times a day, your bowel movements are almost all liquid, or you get a rash.??. Prescriptions: New doxycycline hyclate 100 mg capsule 100 mg PO BID 7 Days Qty: 14 0RF cephalexin 500 mg capsule 500 mg PO QID 7 Days Qty: 28 0RF No Action cephalexin 500 mg capsule 500 mg PO QID 7 Days Qty: 28 0RF doxycycline hyclate 100 mg capsule 100 mg PO BID Qty: 14 0RF bupropion HCl 300 mg tablet extended release 24 hr 300 mg PO DAILY Victoza 3-Mauro 0.6 mg/0.1 mL (18 mg/3 mL) pen injector 1.8 mg subcut DAILY duloxetine 60 mg capsule,delayed release(DR/EC) 120 mg PO DAILY lamotrigine 100 mg tablet 100 mg PO BID lisinopril 10 mg tablet 10 mg PO DAILY oxycodone 5 mg tablet 5 mg PO Xtampza ER 18 mg cap,sprinkl,ER12hr(DONT CRUSH) 18 mg PO Q12H (DME) pen needle, diabetic 31 gauge x 5/16 needle See Rx Instructions subcut DAILY Qty: 1200 Rx Instructions: As directed (DME) lancets Misc See Rx Instructions topical .MEDSUPPLY Qty: 100 Rx Instructions: As directed (DME) Accu-Chek Guide test strips Strip See Rx Instructions .ROUTE TID Qty: 10 Rx Instructions: As directed glipizide 5 mg tablet extended release 24hr 5 mg PO DAILY (DME) blood-glucose meter Misc See Rx Instructions .ROUTE .MEDSUPPLY Qty: 1 Rx Instructions: As directed metformin 1,000 mg tablet 1,000 mg PO BID potassium chloride 20 mEq tablet,ER particles/crystals 20 meq PO DAILY furosemide 40 mg tablet 40 mg PO DAILY amoxicillin 875 mg tablet 875 mg PO BID atorvastatin 40 mg tablet 40 mg PO DAILY bupropion HCl 150 mg tablet sustained-release 12 hr 150 mg PO BID bupropion HCl 150 mg tablet extended release 24 hr 150 mg PO BID oxycodone 20 mg tablet,oral only,ext.rel.12 hr 20 mg PO BID
--- NOTE | 2022-12-30 07:45 | PC.NURSE ---
patient a&ox3, rle dark pink/warm to touch, pt difficult stick-iv inserted awaiting second set of blood cultures to be drawn to begin abx, call cabral within reach, will continue to monitor
--- NOTE | 2022-12-30 08:13 | PC.NURSE ---
US at bedside
--- NOTE | 2022-12-30 09:27 | PC.NURSE ---
this nurse came into the patients room to start second antibiotics, while speaking with patient she began dry heaving, provider was notified pt medicated with zofran per order, vanco started per order, call cabral within reach, will continue to monitor
[2022-12-30 09:29] VITALS: BP 151/42; PULSE 77; RESP 18; TEMP 36.3; O2SAT 98
[2022-12-30 12:03] VITALS: BP 107/51; PULSE 69; RESP 18; TEMP 36.4; O2SAT 97
== END 2022-12-30 12:31 | disposition home or self-care (01) ==
PROVIDERS: Emergency Provider Emergency Medicine
DX: L03.115 Cellulitis of right lower limb (principal); R60.0 Localized edema; R10.2 Pelvic and perineal pain; M54.50 Low back pain, unspecified; M25.551 Pain in right hip; Z79.899 Other long term (current) drug therapy
CPT/HCPCS: 36415; 73502; 80053; 82550; 83605; 85025; 85610; 87040; 87640; 87641; 93971; 96365; 96366; 96375; 99284; J2405; J2543; J3370